=== PATIENT | female | born 1935 | race Caucasian/White ===

== ENCOUNTER 2016-12-17 14:06 | Inpatient (IN) | payer BC ==
[~2016-12-17] VITALS: Ht 157.5 cm; Wt 59.0 kg
[2016-12-17] MEDS ORDERED: MULTI VITAMIN1 EACH ORAL (14:19)
[2016-12-17] MEDS ORDERED: CALCIUM CITRAT1 EAC3 PO (14:19)
[2016-12-17] MEDS ORDERED: ASPIR 8181 MG ORAL (14:19)
[2016-12-17] MEDS ORDERED: DONEPEZIL HCL10 M2 ORAL (14:19)
[2016-12-17] MEDS ORDERED: ATORVASTATIN CA20 MG ORAL (14:19)
[2016-12-17 14:20] VITALS: BP 109/87
[2016-12-17] MEDS ORDERED: NAMENDA10 MG ORAL (14:23)
[2016-12-17] MEDS ORDERED: DESITIN57 G1 TP (14:23)
[2016-12-17] MEDS ORDERED: LEXAPRO10 MG ORAL (14:23)
[2016-12-17] MEDS ORDERED: LISINOPRIL-HCT1 EAC2 ORAL (14:23)
[2016-12-17] MEDS ORDERED: GLUCOSAMINE1000 M1 PO (14:23)
[2016-12-17] MEDS ORDERED: QUETIAPINE FUMA50 MG ORAL (14:23)
--- NOTE | 2016-12-17 14:25 | Emergency Room Report ---
History of Present Illness General Chief Complaint: Vomiting Source: Patient, Medical Record, EMS Present Illness HPI 81YOF BIBEMS from SNF with nausea/vomiting after eating lunch Per EMS, filled one emesis bag with "lunch contents." HPI limited by Hebrew-speaking and history of Alzheimers dementia Patient denies abd pain, dysuria, fever/chills, back pain, chest pain, SOB Allergies: Coded Allergies: AMLODIPINE (Verified Allergy, Unknown, 12/17/16) Patient History Limited by: language barrier, medical condition Past Medical History: dementia, other - HLD Past Surgical History: none, unable to obtain Pertinent Family History: unable to obtain Social History: Denies: smoking, alcohol use, drug use Now: No Immunizations: UTD Reviewed Nursing Documentation: PMH: Agreed, PSxH: Agreed Nursing Documentation-PMH Past Medical History: No History, Except For Hx Hypertension: Yes Hx Diabetes: Yes - PRE diabetes Hx Neurological Problems: Yes - Alzheimer's disease Review of Systems All Other Systems: negative except mentioned in HPI Physical Exam Vital Signs Date Time Temp Pulse Resp B/P (MAP) Pulse Ox O2 Delivery O2 Flow Rate FiO2 12/17/16 14:08 72 16 142/96 99 Room Air Sp02 EP Interpretation: reviewed, normal General Appearance: normal inspection, well appearing, no apparent distress, alert Head: normocephalic, atraumatic Eyes: bilateral eye PERRL, bilateral eye EOMI ENT: normal ENT inspection, hearing grossly normal, normal voice Neck: normal inspection, full range of motion, supple, no bony tend Respiratory: normal inspection, lungs clear, normal breath sounds, no respiratory distress, no retraction, no wheezing Cardiovascular #1: regular rate, rhythm, no edema Gastrointestinal: normal inspection, normal bowel sounds, non tender, soft, no guarding, no hernia Genitourinary: no CVA tenderness Musculoskeletal: normal inspection, back normal, normal range of motion, Concepcion' s Sign negative Neurologic: normal inspection, alert, oriented x3, responsive, 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 as tested, motor strength/tone normal, speech normal Psychiatric: normal inspection, judgement/insight normal, mood/affect normal Skin: normal inspection, normal color, no rash Lymphatic: normal inspection Procedures Critical Care Time Critical Care Time 35 minutes of CC time 81YOF with vomiting found to have NSTEMI, elevated troponin elevated CC time includes review of ECG, labs, dosing of heparin, ASA, d/w staff field engineer, review of EMR from [facility] Medical Decision Making Medicare Attestation I Becky Hernándze MD hereby attest that the medical record entry for date of service, 12/17/16ccurately reflects signatures/notations that I made in my capacity as MD when I treated/diagnosed the above listed Medicare beneficiary. I attest that this information is true, accurate and complete to the best of my knowledge. I understand that any falsification, omission, or concealment of material fact may subject me to administrative, civil, or criminal liability. This patient warrants hospital admission for extreme of age and has a condition that cannot be treated as outpatient. Diagnostic Impression: Primary Impression: Vomiting Qualified Codes: R11.10 - Vomiting, unspecified Additional Impression: Non-STEMI (non-ST elevated myocardial infarction) ER Course ECG NSR. Prolonged QTc Troponin elevated 0.1 Given ASA, Heparin gtt No leuks. H&h stable. Patient remains asymptomatic - no additional vomiting after medication. Patient is of Dr Mercer - tele admit 357pm Dr Watt consulted for Cardiology at 4pm as well. EKG Diagnostic Results Rate: normal Rhythm: NSR ST Segments: no acute changes Other Impression QTc 513 Rhythm Strip Diag. Results EP Interpretation: yes Rate: 77 Rhythm: NSR, no PVC's, no ectopy Chest X-Ray Diagnostic Results Chest X-Ray Diagnostic Results : Chest X-Ray Ordered: Yes # of Views/Limited/Complete: 1 View Indication: Other - vomiting EP Interpretation: Yes Interpretation: no consolidation, no effusion, no pneumothorax, no acute cardiopulmonary disease Impression: No acute disease Electronically Signed by: Dr Becky Hernández MD Last Vital Signs Date Time Temp Pulse Resp B/P (MAP) Pulse Ox O2 Delivery O2 Flow Rate FiO2 12/17/16 14:08 72 16 142/96 99 Room Air Status: improved Disposition: ADMITTED INPATIENT Condition: Critical BECKY HERNÁNDEZ M.D. Dec 17, 2016 14:25
[2016-12-17 14:59] LABS: EOSINOPHILS % (AUTO) 0.5 % (0.0-3.0); LYMPHOCYTES % (AUTO) 17.8 % (20.0-45.0); MEAN CORPUSCULAR HEMOGLOBIN 30.8 PG (27.0-31.0); MEAN CORPUSCULAR HGB CONC 33.4 G/DL (32.0-36.0); MEAN CORPUSCULAR VOLUME 92 FL (80-99); MEAN PLATELET VOLUME 5.9 FL (6.5-10.1); MONOCYTES % (AUTO) 5.3 % (1.0-10.0); NEUTROPHILS % (AUTO) 75.5 % (45.0-75.0); PLATELET COUNT 229 K/UL (150-450); RED BLOOD COUNT 4.54 M/UL (4.20-5.40); RED CELL DISTRIBUTION WIDTH 11.8 % (11.6-14.8); WHITE BLOOD COUNT 7.4 K/UL (4.8-10.8)
[2016-12-17 15:22] LABS: ALANINE AMINOTRANSFERASE 28 U/L (12-78); ALBUMIN/GLOBULIN RATIO 1.2 (1.0-2.7); ANION GAP 9 (5-15); ASPARTATE AMINO TRANSFERASE 22 U/L (15-37); CALCIUM 9.8 MG/DL (8.5-10.1); CARBON DIOXIDE 26 MMOL/L (21-32); CHLORIDE 106 MMOL/L (98-107); CREATININE 0.9 MG/DL (0.55-1.30); LIPASE 244 U/L (73-393); POTASSIUM 3.5 MMOL/L (3.5-5.1); SODIUM 141 MMOL/L (136-145); TOTAL PROTEIN 7.4 G/DL (6.4-8.2)
[2016-12-17 15:30] VITALS: BP 125/55
[2016-12-17] MEDS ORDERED: Heparin 5000 units/ml inj IV ONE (15:45)
[2016-12-17] MEDS: Heparin 25,000u/D5W 500ml 500 ML IV SCH ×2 (16:04→17:32)
[2016-12-17 16:30] VITALS: BP 121/90
[2016-12-17 17:30] VITALS: BP 105/68
--- NOTE | 2016-12-17 17:34 | History & Physical ---
History and Physical History & Physicial dict n/v, AMI dementia HTN HPLD cardiology to see BECKY RIVAS Dec 17, 2016 17:34
[2016-12-17 19:10] VITALS: BP 132/88
[2016-12-17] MEDS ORDERED: Lisinopril 10mg tab ORAL ONE (19:15)
[2016-12-17] MEDS ORDERED: Heparin 25,000 units/D5W 500ml (ACS/MI) IV SCH (19:45)
[2016-12-17] MEDS: Atorvastatin 20mg tab ORAL SCH (21:17)
--- NOTE | 2016-12-17 22:47 | History and Physical Report ---
DATE OF ADMISSION: 12/17/2016 CHIEF COMPLAINT: Nausea and vomiting. HISTORY OF PRESENT ILLNESS: This 81-year-old woman, who has advanced dementia and lives in an assisted living facility, vomited 3 times today and was brought to the emergency department by paramedics. She was evaluated and found to have evidence of elevated troponin consistent with an acute myocardial infarction. She has no recollection of the events and does not have chest pain. Her brother is with her and reports the above. PAST MEDICAL HISTORY: No history is available from the brother or her [facility] record, however, her medication list indicates that perhaps she has hypertension, hyperlipidemia, depression, and Alzheimer's dementia. ALLERGIES: Amlodipine. MEDICATIONS: Aspirin, Lipitor, calcium, donepezil, Lexapro, glucosamine, lisinopril and hydrochlorothiazide, Namenda, vitamins, Seroquel, and zinc. REVIEW OF SYSTEMS: Cannot really be obtained. Evidently, she lives in assisted living and appears well kempt. PHYSICAL EXAMINATION: GENERAL: The patient is alert and responsive, but has very poor memory. VITAL SIGNS: Show blood pressure 142/96, other vital signs are normal. She is well developed and well nourished. HEENT: Head is normocephalic. NECK: No jugular vein distention. CHEST: Clear. CARDIAC: Rhythm is regular. ABDOMEN: Soft and nontender. Liver and spleen are not enlarged. EXTREMITIES: No clubbing, cyanosis, or edema. LABORATORY AND DIAGNOSTIC DATA: The EKG appears normal. Laboratory studies show the troponin is elevated at 0.136. Blood sugar 142, BUN 24, otherwise electrolytes are normal. She has hemoglobin of 14. White count and platelets are normal. Urinalysis is pending. Coagulation shows normal PTT. IMPRESSION: 1. Nausea and vomiting with elevated troponin, probably due to acute myocardial infarction. 2. Alzheimer's dementia. 3. Hypertension. 4. Hyperlipidemia. PLAN: The patient will be admitted to telemetry bed. Cardiology has been called to see her. We will continue her current medications and aspirin. Invasive workup would not be appropriate given her advanced dementia. Kristopher Mercer M.D. DR: MS/V JOB#: [id number] CC: Kristopher Mercer M.D.; Fax#: [phone] Kelechi Watt M.D.
--- NOTE | 2016-12-17 23:17 | Consultation ---
DATE OF CONSULTATION: 12/17/2016 CARDIOLOGY CONSULTATION CONSULTING PHYSICIAN: Kelechi Watt M.D. ATTENDING PHYSICIAN: Kristopher Mercer M.D. REQUESTING PHYSICIAN: Kristopher Mercer M.D. REASON FOR CONSULTATION: Elevated troponin level. HISTORY OF PRESENT ILLNESS: This is an 81-year-old female. She resides at a intermediate facility. She was brought into the emergency room because of a large amount of emesis noted after lunch today. The patient apparently had no other symptoms including abdominal pain, fever, back pain, or chest pain. No shortness of breath. She does have history of dementia and full diagnostic workup was undertaken as a result. Concerns were raised over troponin level of 0.136 prompting this consultation. MEDICATIONS: Prior to admission, reviewed and reconciled. ALLERGIES: Include amlodipine. SOCIAL HISTORY: Negative for smoking, alcohol, or substance abuse. PAST MEDICAL HISTORY: Includes hypertension, hyperlipidemia, depression, dementia, osteoarthritis, and metabolic syndrome. REVIEW OF SYSTEMS: Not obtainable from the patient. Records are reviewed and pertinent data as outlined above. PHYSICAL EXAMINATION: VITAL SIGNS: Temperature 98.8, blood pressure 143/96, heart rate 72, respiratory rate 16. HEENT: Mild temporal wasting. Pale conjunctivae. Oropharynx clear. Mucous membranes dry. NECK: Supple. Jugular venous pressure normal. LUNGS: With clear breath sounds. CARDIAC: Regular rhythm and rate. Normal S1, S2 with fourth heart sound. ABDOMEN: Soft. No focal tenderness, guarding, or rebound. EXTREMITIES: Without edema. LABORATORY AND DIAGNOSTIC DATA: White count 7.4, hemoglobin 14.2. Sodium 141, potassium 3.5, bicarbonate 26, BUN 24, creatinine 0.9, and glucose 142. Albumin 4. Troponin 0.136. Chest x-ray with no acute process. EKG with sinus rhythm at 77 beats per minute, no acute ST or T-wave abnormalities, and QT interval is slightly prolonged. IMPRESSION: 1. Acute myocardial infarction. 2. Cerebrovascular disease with dementia. 3. Hypertensive heart disease with controlled blood pressure. 4. History of hyperlipidemia. 5. Vomiting x1. PLAN: 1. Hydration. 2. Antiplatelet therapy. 3. If no further increases in troponin levels, we will discontinue heparin drip. 4. Beta-blockade. 5. DVT prophylaxis once off IV heparin. 6. Check lipid panel. 7. Continue statin drug. 8. Consideration for further GI workup based on clinical parameters. Kelechi Watt M.D. DR: Abhijeet JOB#: [id number] CC:
[2016-12-18] VITALS: BP 109/50
[2016-12-18] MEDS ORDERED: Heparin 25,000 units/D5W 500ml (ACS/MI) IV SCH ×2 (01:15→11:30)
[2016-12-18] MEDS ORDERED: Heparin 5000 units/ml inj IV ONE (01:15)
[2016-12-18 04:00] VITALS: BP 107/67
[2016-12-18 08:00] VITALS: BP 114/59
[2016-12-18] MEDS: Memantine 10mg tab ORAL SCH ×2 (08:36→17:00)
[2016-12-18] MEDS: Donepezil 10mg tab ORAL SCH (08:36)
[2016-12-18] MEDS: Aspirin EC 81mg tab ORAL SCH (08:36)
[2016-12-18 10:01] LABS: BASOPHILS % (AUTO) 0.8 % (0.0-2.0); EOSINOPHILS % (AUTO) 1.3 % (0.0-3.0); LYMPHOCYTES % (AUTO) 26.6 % (20.0-45.0); MEAN CORPUSCULAR HEMOGLOBIN 30.6 PG (27.0-31.0); MEAN CORPUSCULAR HGB CONC 32.8 G/DL (32.0-36.0); MEAN CORPUSCULAR VOLUME 93 FL (80-99); MEAN PLATELET VOLUME 6.2 FL (6.5-10.1); MONOCYTES % (AUTO) 5.6 % (1.0-10.0); NEUTROPHILS % (AUTO) 65.7 % (45.0-75.0); PLATELET COUNT 214 K/UL (150-450); RED BLOOD COUNT 4.37 M/UL (4.20-5.40); RED CELL DISTRIBUTION WIDTH 12.2 % (11.6-14.8); WHITE BLOOD COUNT 7.1 K/UL (4.8-10.8)
[2016-12-18 10:52] LABS: HEMOGLOBIN A1C 6.8 % (4.3-6.0)
[2016-12-18 11:02] LABS: ALANINE AMINOTRANSFERASE 30 U/L (12-78); ALBUMIN/GLOBULIN RATIO 1.1 (1.0-2.7); ANION GAP 11 (5-15); ASPARTATE AMINO TRANSFERASE 32 U/L (15-37); CALCIUM 9.1 MG/DL (8.5-10.1); CARBON DIOXIDE 26 MMOL/L (21-32); CHLORIDE 106 MMOL/L (98-107); CHOLESTEROL 138 MG/DL (< 200); CHOLESTEROL/HDL RATIO 2.3 (3.3-4.4); CREATININE 1.1 MG/DL (0.55-1.30); POTASSIUM 3.3 MMOL/L (3.5-5.1); SODIUM 143 MMOL/L (136-145); THYROID STIMULATING HORMONE 1.433 uiU/mL (0.360-3.740); TOTAL PROTEIN 6.7 G/DL (6.4-8.2)
--- NOTE | 2016-12-18 11:14 | Pulmonology Progress Note ---
Assessment/Plan Assessment/Plan IMPRESSION: 1. Nausea and vomiting with elevated troponin, probably due to acute myocardial infarction. 2. Alzheimer's dementia. 3. Hypertension. 4. Hyperlipidemia. PLAN: The patient will be admitted to telemetry bed. Cardiology has been called to see her. We will continue her current medications and aspirin. Invasive workup would not be appropriate given her advanced dementia. Subjective Interval Events: no change Constitutional: Reports: no symptoms HEENT: Repors: no symptoms Respiratory: Reports: no symptoms Cardiovascular: Reports: no symptoms Gastrointestinal/Abdominal: Reports: no symptoms Allergies: Coded Allergies: AMLODIPINE (Verified Allergy, Unknown, 12/17/16) Objective Last 24 Hour Vital Signs Date Time Temp Pulse Resp B/P (MAP) Pulse Ox O2 Delivery O2 Flow Rate FiO2 12/18/16 08:00 67 12/18/16 08:00 97.9 58 20 114/59 96 Room Air 12/18/16 04:00 97.7 74 18 107/67 97 Room Air 12/18/16 04:00 55 12/18/16 00:00 61 12/18/16 00:00 97.5 60 18 109/50 96 Room Air 12/17/16 21:18 155/74 12/17/16 19:45 97.9 70 19 132/88 98 Room Air 12/17/16 19:10 97.9 70 19 132/88 98 Room Air 12/17/16 17:30 63 12 105/68 98 Room Air 12/17/16 16:30 98.2 63 11 121/90 98 Room Air 12/17/16 15:30 98.2 65 10 125/55 99 Room Air 12/17/16 14:20 98.2 76 13 109/87 99 Room Air 12/17/16 14:08 72 16 142/96 99 Room Air Intake and Output 12/18/16 12/19/16 19:00 07:00 Intake Total 18.848 ml Balance 18.848 ml IV Total 18.848 ml General Appearance: no acute distress HEENT: normocephalic Respiratory/Chest: chest wall non-tender Cardiovascular: normal peripheral pulses, normal rate Abdomen: normal bowel sounds, soft, non tender Laboratory Tests 12/17/16 14:37: White Blood Count 7.4, Red Blood Count 4.54, Hemoglobin 14.0, Hematocrit 41.9, Mean Corpuscular Volume 92, Mean Corpuscular Hemoglobin 30.8, Mean Corpuscular Hemoglobin Concent 33.4, Red Cell Distribution Width 11.8, Platelet Count 229, Mean Platelet Volume 5.9L, Neutrophils (%) (Auto) 75.5H, Lymphocytes (%) (Auto) 17.8L, Monocytes (%) (Auto) 5.3, Eosinophils (%) (Auto) 0.5, Basophils (%) (Auto ) 1.0, Activated Partial Thromboplast Time 24, Sodium Level 141, Potassium Level 3.5, Chloride Level 106, Carbon Dioxide Level 26, Anion Gap 9, Blood Urea Nitrogen 24H, Creatinine 0.9, Estimat Glomerular Filtration Rate , Glucose Level 142H, Calcium Level 9.8, Total Bilirubin 0.5, Aspartate Amino Transf (AST/ SGOT) 22, Alanine Aminotransferase (ALT/SGPT) 28, Alkaline Phosphatase 96, Troponin I 0.136H, Total Protein 7.4, Albumin 4.0, Globulin 3.4, Albumin/ Globulin Ratio 1.2, Lipase 244 12/17/16 23:20: Activated Partial Thromboplast Time 50H 12/18/16 02:00: Troponin I 2.948H 12/18/16 09:00: White Blood Count 7.1, Red Blood Count 4.37, Hemoglobin 13.4, Hematocrit 40.7, Mean Corpuscular Volume 93, Mean Corpuscular Hemoglobin 30.6, Mean Corpuscular Hemoglobin Concent 32.8, Red Cell Distribution Width 12.2, Platelet Count 214, Mean Platelet Volume 6.2L, Neutrophils (%) (Auto) 65.7, Lymphocytes (%) (Auto) 26.6, Monocytes (%) (Auto) 5.6, Eosinophils (%) (Auto) 1.3, Basophils (%) (Auto ) 0.8, Activated Partial Thromboplast Time 149H, Sodium Level 143, Potassium Level 3.3L, Chloride Level 106, Carbon Dioxide Level 26, Anion Gap 11, Blood Urea Nitrogen 22H, Creatinine 1.1, Estimat Glomerular Filtration Rate , Glucose Level 151H, Calcium Level 9.1, Total Bilirubin 0.6, Aspartate Amino Transf (AST/ SGOT) 32, Alanine Aminotransferase (ALT/SGPT) 30, Alkaline Phosphatase 88, Total Protein 6.7, Albumin 3.5, Globulin 3.2, Albumin/Globulin Ratio 1.1, Hemoglobin A1c 6.8H, Triglycerides Level 49, Cholesterol Level 138, LDL Cholesterol 78, HDL Cholesterol 59, Cholesterol/HDL Ratio 2.3L, Thyroid Stimulating Hormone (TSH) 1.433 Current Medications Medications (Trade) Dose Ordered Sig/Astrid Route PRN Reason Start Time Stop Time Status Last Admin Dose Admin Aspirin (Ecotrin) 81 mg DAILY ORAL 12/18/16 09:00 01/17/17 08:59 12/18/16 08:36 Atorvastatin Calcium (Lipitor) 20 mg BEDTIME ORAL 12/17/16 21:00 01/16/17 20:59 12/17/16 21:17 Donepezil HCl (Aricept) 10 mg DAILY ORAL 12/18/16 09:00 01/17/17 08:59 12/18/16 08:36 Escitalopram Oxalate (Lexapro) 10 mg DAILY ORAL 12/18/16 09:00 01/17/17 08:59 12/18/16 08:36 Heparin Sodium/ Dextrose 500 ml @ 15.314 mls/ hr Q24H IV 12/18/16 11:30 01/17/17 11:29 Memantine (Namenda) 10 mg TWICE A DAY ORAL 12/18/16 09:00 01/17/17 08:59 12/18/16 08:36 Multivitamins (Multivitamins) 1 tab DAILY ORAL 12/18/16 09:00 01/17/17 08:59 12/18/16 08:36 Quetiapine Fumarate (SEROquel) 25 mg BEDTIME ORAL 12/17/16 21:00 01/16/17 20:59 12/17/16 21:16 Willard Youngblood MD Dec 18, 2016 11:14
[2016-12-18 12:00] VITALS: BP 121/59
--- NOTE | 2016-12-18 12:55 | Diagnostic Imaging Report ---
Indication: Dyspnea Comparison: None A single view chest radiograph was obtained. Findings: Interstitial markings are prominent. Heart is enlarged. Bones are osteopenic. Impression: Mild interstitial edema or pneumonitis
[2016-12-18 15:29] LABS: APPEARANCE,URINE CLOUDY; KETONES,URINE NEGATIVE (NEGATIVE); LEUKOCYTE ESTERASE ,URINE 1+ (NEGATIVE); NITRITE,URINE NEGATIVE (NEGATIVE); PH,URINE 8 (4.5-8.0); PROTEIN,URINE NEGATIVE (NEGATIVE); UROBILINOGEN,URINE 1 MG/DL (0.0-1.0)
[2016-12-18 15:45] LABS: RBC,URINE 0-2 /HPF (0 - 2); SQUAMOUS EPITHELIAL CELL,UR OCCASIONAL /LPF (NONE/OCC); WBC,URINE 0-2 /HPF (0 - 2)
[2016-12-18 15:46] LABS: AMORPHOUS SEDIMENT,UR MANY /LPF; BACTERIA,URINE FEW /HPF
[2016-12-18 16:00] VITALS: BP_SYST 118; BP_SYST 119; BP_DIAS 41; BP_DIAS 73
--- NOTE | 2016-12-18 18:00 | Progress Note ---
DATE: 12/18/2016 CARDIOLOGY PROGRESS NOTE SUBJECTIVE: The patient has no chest pain. No shortness of breath. Her nausea has resolved. Her appetite is fair. She was able to eat minimal breakfast. OBJECTIVE: VITAL SIGNS: Blood pressure 109/50, pulse 60, respiratory rate 18, and afebrile last evening. Presently 114/59, pulse 58, and respiratory rate 20. HEENT: Conjunctivae are pink. Oropharynx clear. NECK: Supple. LUNGS: Clear. CARDIAC: Regular with normal S1 and S2 with no murmur. ABDOMEN: Soft. EXTREMITIES: No edema. LABORATORY AND DIAGNOSTIC DATA: EKG revealed sinus rhythm with possible septal infarction of indeterminate at age. Troponin levels have peaked at 2.948, presently 1.574. TSH 1.4. LDL cholesterol is 78. Potassium 3.3, BUN 23, and creatinine 1.1. IMPRESSION: 1. Acute myocardial infarction, non-ST elevation type. 2. Hypokalemia. 3. Favorable lipid panel on statin drug. 4. Type 2 diabetes mellitus with controlled blood glucose. 5. Hypertension, controlled. 6. Dementia. PLAN: 1. Continue anti-platelet therapy. 2. Discontinue IV heparin. 3. Low-dose beta-luis as tolerated by heart rate. 4. Potassium replacement. 5. Check magnesium. 6. If the patient remains clinically stable, we will follow a noninvasive conservative course of care in view of her performance status. Kelechi Watt M.D. DR: RENETTA JOB#: [id number] CC:
[2016-12-18 20:00] VITALS: BP_SYST 119; BP_SYST 130; BP_DIAS 41; BP_DIAS 53
[2016-12-18] MEDS: Atorvastatin 20mg tab ORAL SCH (21:29)
[2016-12-19] VITALS: BP 82/40
[2016-12-19 04:00] VITALS: BP 105/49
[2016-12-19 07:41] LABS: EOSINOPHILS % (AUTO) 1.7 % (0.0-3.0); LYMPHOCYTES % (AUTO) 31.7 % (20.0-45.0); MEAN CORPUSCULAR HEMOGLOBIN 31.3 PG (27.0-31.0); MEAN CORPUSCULAR HGB CONC 33.3 G/DL (32.0-36.0); MEAN CORPUSCULAR VOLUME 94 FL (80-99); MEAN PLATELET VOLUME 5.9 FL (6.5-10.1); MONOCYTES % (AUTO) 8.9 % (1.0-10.0); NEUTROPHILS % (AUTO) 56.7 % (45.0-75.0); PLATELET COUNT 203 K/UL (150-450); RED BLOOD COUNT 4.19 M/UL (4.20-5.40); RED CELL DISTRIBUTION WIDTH 12.5 % (11.6-14.8); WHITE BLOOD COUNT 5.2 K/UL (4.8-10.8)
[2016-12-19 08:00] VITALS: BP 120/53
[2016-12-19 08:02] LABS: ALANINE AMINOTRANSFERASE 27 U/L (12-78); ALBUMIN/GLOBULIN RATIO 1.1 (1.0-2.7); ANION GAP 5 (5-15); ASPARTATE AMINO TRANSFERASE 29 U/L (15-37); CARBON DIOXIDE 27 MMOL/L (21-32); CHLORIDE 106 MMOL/L (98-107); MAGNESIUM 2.2 MG/DL (1.8-2.4); POTASSIUM 3.9 MMOL/L (3.5-5.1); SODIUM 138 MMOL/L (136-145); TOTAL PROTEIN 6.2 G/DL (6.4-8.2)
[2016-12-19] MEDS: Memantine 10mg tab ORAL SCH ×2 (09:02→17:43)
[2016-12-19] MEDS: Donepezil 10mg tab ORAL SCH (09:02)
[2016-12-19] MEDS: Aspirin EC 81mg tab ORAL SCH (09:02)
[2016-12-19 12:00] VITALS: BP 129/58
[2016-12-19 16:00] VITALS: BP 103/63
--- NOTE | 2016-12-19 18:26 | Pulmonology Progress Note ---
Assessment/Plan Assessment/Plan 1. Nausea and vomiting with elevated troponin, probably due to acute myocardial infarction. 2. Alzheimer's dementia. 3. Hypertension. 4. Hyperlipidemia. PLAN: troponins trending down asa, statin bp control encourage po pt wound care check labs wednesday fu with cards recommendations, medical mgmt DM control Subjective ROS Limited/Unobtainable: Yes Allergies: Coded Allergies: AMLODIPINE (Verified Allergy, Unknown, 12/17/16) Subjective pt confused minimal po no reports of cp nv or bleeding positive uop Objective Last 24 Hour Vital Signs Date Time Temp Pulse Resp B/P (MAP) Pulse Ox O2 Delivery O2 Flow Rate FiO2 12/19/16 16:57 70 12/19/16 16:00 97.2 70 21 103/63 94 Room Air 12/19/16 12:00 97.6 55 21 129/58 96 Room Air 12/19/16 12:00 55 12/19/16 10:26 53 12/19/16 09:00 53 120/53 12/19/16 08:00 97.2 53 20 120/53 95 Room Air 12/19/16 04:00 97.1 53 20 105/49 96 Room Air 12/19/16 04:00 54 12/19/16 00:00 97.2 58 21 82/40 92 Room Air 12/19/16 00:00 59 12/18/16 21:29 63 130/53 12/18/16 20:00 67 12/18/16 20:00 97.3 72 21 119/41 95 Room Air Intake and Output 12/19/16 12/20/16 19:00 07:00 Intake Total 850 ml Balance 850 ml Other 850 ml # Voids 2 # Bowel Movements 1 General Appearance: cachetic HEENT: atraumatic, anicteric Respiratory/Chest: rhonchi Cardiovascular: normal rate, regular rhythm Abdomen: soft, non tender, no organomegaly Genitourinary: normal external genitalia Skin: ulcers - edema Neurologic/Psychiatric: disoriented Lymphatic: no neck adenopathy Laboratory Tests 12/19/16 06:50: White Blood Count 5.2, Red Blood Count 4.19L, Hemoglobin 13.1, Hematocrit 39.3, Mean Corpuscular Volume 94, Mean Corpuscular Hemoglobin 31.3H, Mean Corpuscular Hemoglobin Concent 33.3, Red Cell Distribution Width 12.5, Platelet Count 203, Mean Platelet Volume 5.9L, Neutrophils (%) (Auto) 56.7, Lymphocytes (%) (Auto) 31.7, Monocytes (%) (Auto) 8.9, Eosinophils (%) (Auto) 1.7, Basophils (%) (Auto ) 1.0, Sodium Level 138, Potassium Level 3.9, Chloride Level 106, Carbon Dioxide Level 27, Anion Gap 5, Blood Urea Nitrogen 24H, Creatinine 1.0, Estimat Glomerular Filtration Rate , Glucose Level 88, Calcium Level 9.0, Magnesium Level 2.2, Total Bilirubin 0.5, Aspartate Amino Transf (AST/SGOT) 29, Alanine Aminotransferase (ALT/SGPT) 27, Alkaline Phosphatase 79, Troponin I 0.569H, Pro- B-Type Natriuretic Peptide 2366H, Total Protein 6.2L, Albumin 3.2L, Globulin 3.0 , Albumin/Globulin Ratio 1.1 Current Medications Medications (Trade) Dose Ordered Sig/Astrid Route PRN Reason Start Time Stop Time Status Last Admin Dose Admin Aspirin (Ecotrin) 81 mg DAILY ORAL 12/18/16 09:00 01/17/17 08:59 12/19/16 09:02 Atorvastatin Calcium (Lipitor) 20 mg BEDTIME ORAL 12/17/16 21:00 01/16/17 20:59 12/18/16 21:29 Carvedilol (Coreg) 3.125 mg EVERY 12 HOURS ORAL 12/18/16 12:30 01/17/17 12:29 12/18/16 21:29 Donepezil HCl (Aricept) 10 mg DAILY ORAL 12/18/16 09:00 01/17/17 08:59 12/19/16 09:02 Escitalopram Oxalate (Lexapro) 10 mg DAILY ORAL 12/18/16 09:00 01/17/17 08:59 12/19/16 09:11 Memantine (Namenda) 10 mg TWICE A DAY ORAL 12/18/16 09:00 01/17/17 08:59 12/19/16 17:43 Multivitamins (Multivitamins) 1 tab DAILY ORAL 12/18/16 09:00 01/17/17 08:59 12/19/16 09:02 Quetiapine Fumarate (SEROquel) 25 mg BEDTIME ORAL 12/17/16 21:00 01/16/17 20:59 12/18/16 21:29 SATNAM CASPER DO Dec 19, 2016 18:26
[2016-12-19 20:00] VITALS: BP 119/72
[2016-12-19] MEDS: Atorvastatin 20mg tab ORAL SCH (21:40)
[2016-12-20] VITALS: BP 137/58
[2016-12-20 04:00] VITALS: BP 144/63
--- NOTE | 2016-12-20 06:42 | Pulmonology Progress Note ---
Assessment/Plan Assessment/Plan 1. Nausea and vomiting with elevated troponin, probably due to acute myocardial infarction. 2. Alzheimer's dementia. 3. Hypertension. 4. Hyperlipidemia. PLAN: troponins trending down asa, statin bp control encourage po pt wound care check labs wednesday fu with cards recommendations, medical mgmt DM control Subjective ROS Limited/Unobtainable: Yes Allergies: Coded Allergies: AMLODIPINE (Verified Allergy, Unknown, 12/17/16) Subjective pt remains confused no events over night no reports of cp nv or bleeding positive uop does not get oob on O2 Objective Last 24 Hour Vital Signs Date Time Temp Pulse Resp B/P (MAP) Pulse Ox O2 Delivery O2 Flow Rate FiO2 12/20/16 04:00 61 12/20/16 04:00 97.0 64 20 144/63 95 Room Air 12/20/16 00:00 97.0 60 20 137/58 95 Room Air 12/20/16 00:00 55 12/19/16 21:40 59 119/72 12/19/16 20:00 97.2 59 18 119/72 95 Room Air 12/19/16 20:00 60 12/19/16 16:57 70 12/19/16 16:00 97.2 70 21 103/63 94 Room Air 12/19/16 12:00 97.6 55 21 129/58 96 Room Air 12/19/16 12:00 55 12/19/16 10:26 53 12/19/16 09:00 53 120/53 12/19/16 08:00 97.2 53 20 120/53 95 Room Air General Appearance: cachetic HEENT: atraumatic, anicteric Respiratory/Chest: rhonchi Cardiovascular: normal rate, regular rhythm Abdomen: soft, non tender, non distended Extremities: other - edema Neurologic/Psychiatric: disoriented Laboratory Tests 12/19/16 06:50: White Blood Count 5.2, Red Blood Count 4.19L, Hemoglobin 13.1, Hematocrit 39.3, Mean Corpuscular Volume 94, Mean Corpuscular Hemoglobin 31.3H, Mean Corpuscular Hemoglobin Concent 33.3, Red Cell Distribution Width 12.5, Platelet Count 203, Mean Platelet Volume 5.9L, Neutrophils (%) (Auto) 56.7, Lymphocytes (%) (Auto) 31.7, Monocytes (%) (Auto) 8.9, Eosinophils (%) (Auto) 1.7, Basophils (%) (Auto ) 1.0, Sodium Level 138, Potassium Level 3.9, Chloride Level 106, Carbon Dioxide Level 27, Anion Gap 5, Blood Urea Nitrogen 24H, Creatinine 1.0, Estimat Glomerular Filtration Rate , Glucose Level 88, Calcium Level 9.0, Magnesium Level 2.2, Total Bilirubin 0.5, Aspartate Amino Transf (AST/SGOT) 29, Alanine Aminotransferase (ALT/SGPT) 27, Alkaline Phosphatase 79, Troponin I 0.569H, Pro- B-Type Natriuretic Peptide 2366H, Total Protein 6.2L, Albumin 3.2L, Globulin 3.0 , Albumin/Globulin Ratio 1.1 Current Medications Medications (Trade) Dose Ordered Sig/Astrid Route PRN Reason Start Time Stop Time Status Last Admin Dose Admin Aspirin (Ecotrin) 81 mg DAILY ORAL 12/18/16 09:00 01/17/17 08:59 12/19/16 09:02 Atorvastatin Calcium (Lipitor) 20 mg BEDTIME ORAL 12/17/16 21:00 01/16/17 20:59 12/19/16 21:40 Carvedilol (Coreg) 3.125 mg EVERY 12 HOURS ORAL 12/18/16 12:30 01/17/17 12:29 12/18/16 21:29 Donepezil HCl (Aricept) 10 mg DAILY ORAL 12/18/16 09:00 01/17/17 08:59 12/19/16 09:02 Escitalopram Oxalate (Lexapro) 10 mg DAILY ORAL 12/18/16 09:00 01/17/17 08:59 12/19/16 09:11 Memantine (Namenda) 10 mg TWICE A DAY ORAL 12/18/16 09:00 01/17/17 08:59 12/19/16 17:43 Multivitamins (Multivitamins) 1 tab DAILY ORAL 12/18/16 09:00 01/17/17 08:59 12/19/16 09:02 Quetiapine Fumarate (SEROquel) 25 mg BEDTIME ORAL 12/17/16 21:00 01/16/17 20:59 12/19/16 21:39 SATNAM CASPER DO Dec 20, 2016 06:42
[2016-12-20 08:00] VITALS: BP 172/76
[2016-12-20] MEDS: Donepezil 10mg tab ORAL SCH (08:49)
[2016-12-20] MEDS: Memantine 10mg tab ORAL SCH ×2 (08:51→17:23)
[2016-12-20] MEDS: Aspirin EC 81mg tab ORAL SCH (08:51)
[2016-12-20 12:00] VITALS: BP 139/65
[2016-12-20 16:19] VITALS: BP 129/66
[2016-12-20] MEDS ORDERED: 1/2 NS 1000ml IV ONE (17:13)
[2016-12-20 20:00] VITALS: BP 136/68
[2016-12-20] MEDS: Atorvastatin 20mg tab ORAL SCH (20:56)
[2016-12-21] VITALS (7 sets, daily range): BP systolic 113–135; BP diastolic 50–68
--- NOTE | 2016-12-21 04:00 | Progress Note ---
DATE: 12/20/2016 CARDIOLOGY PROGRESS NOTE SUBJECTIVE: The patient has no chest pain, no shortness of breath. No nausea or vomiting. She is tolerating oral intake, although appetite remains poor. Echocardiogram with normal ejection fraction. OBJECTIVE: VITAL SIGNS: Blood pressure is 144/63, pulse rate 64, respiratory rate 20, and afebrile. Monitored sinus and sinus bradycardia. LUNGS: Good breath sounds. HEART: Regular rhythm and rate. Normal S1 and S2. ABDOMEN: Soft. EXTREMITIES: No edema. LABORATORY DATA: Reviewed. IMPRESSION: 1. Acute myocardial infarction. 2. Acute diastolic congestive heart failure. 3. Type 2 diabetes mellitus. 4. Beta-luis associated sinus bradycardia of no hemodynamic significance. 5. Hypertensive heart disease with controlled blood pressure. PLAN: 1. Continue anti-lipid and anti-platelet therapy. 2. Continue low-dose beta-luis as tolerated. 3. Myocardial perfusion scan to assess ischemic burden and help guide long-term management, preferably medically. 4. Review chest x-ray. 5. Reassess clinical parameters for diuresis. Kelechi Watt M.D. DR: Mary JOB#: [id number] CC:
--- NOTE | 2016-12-21 04:00 | Progress Note ---
DATE: 12/19/2016 CARDIOLOGY PROGRESS NOTE Late entry for 12/19/2016 SUBJECTIVE: The patient has not had any recurring nausea or vomiting. She tolerated oral intake, although appetite is poor. She denies chest pain or shortness of breath. OBJECTIVE: VITAL SIGNS: Blood pressure is 103/63, pulse rate 70, respiratory rate 21, and afebrile. property assessment monitor reveals sinus and sinus bradycardia. Heart rate 53 to 70. NECK: Supple. LUNGS: Clear. CARDIAC: Regular. Normal S1 and S2 with a fourth heart sound. ABDOMEN: Soft. EXTREMITIES: No edema. DIAGNOSTIC DATA: Echocardiogram revealed normal ejection fraction. LABORATORY DATA: Pro-natriuretic peptide is 2366. BUN 24, creatinine 1, and potassium 3.9. Troponin remains elevated at 0.569. IMPRESSION: 1. Acute myocardial infarction. 2. Acute diastolic congestive heart failure. 3. Mild protein-calorie malnutrition. 4. Nausea and vomiting was likely an anginal equivalent. 5. Hypokalemia, corrected. 6. Type 2 diabetes mellitus with improving glucose control. 7. Hypertensive heart disease with controlled blood pressure. 8. Favorable lipid panel on current statin dosing. 9. Sinus with asymptomatic sinus bradycardia, on low-dose beta-luis. PLAN: 1. Myocardial perfusion scan to assess ischemic burden once troponin levels normalize, optimize anti-failure and antianginal regimen. 2. Diuresis based on clinical parameters. 3. Continue anti-platelet therapy. Kelechi Watt M.D. DR: Mary JOB#: [id number] CC:
[2016-12-21 07:39] LABS: BASOPHILS % (AUTO) 0.8 % (0.0-2.0); EOSINOPHILS % (AUTO) 1.9 % (0.0-3.0); LYMPHOCYTES % (AUTO) 28.7 % (20.0-45.0); MEAN CORPUSCULAR HEMOGLOBIN 32.5 PG (27.0-31.0); MEAN CORPUSCULAR HGB CONC 34.9 G/DL (32.0-36.0); MEAN CORPUSCULAR VOLUME 93 FL (80-99); MEAN PLATELET VOLUME 6.4 FL (6.5-10.1); MONOCYTES % (AUTO) 9.2 % (1.0-10.0); NEUTROPHILS % (AUTO) 59.4 % (45.0-75.0); PLATELET COUNT 197 K/UL (150-450); RED BLOOD COUNT 4.24 M/UL (4.20-5.40); WHITE BLOOD COUNT 6.3 K/UL (4.8-10.8)
[2016-12-21 07:50] LABS: ANION GAP 11 (5-15); CALCIUM 9.3 MG/DL (8.5-10.1); CARBON DIOXIDE 25 MMOL/L (21-32); CHLORIDE 107 MMOL/L (98-107); POTASSIUM 3.9 MMOL/L (3.5-5.1); SODIUM 143 MMOL/L (136-145)
[2016-12-21] MEDS: Aspirin EC 81mg tab ORAL SCH (08:56)
[2016-12-21] MEDS: Donepezil 10mg tab ORAL SCH (08:56)
[2016-12-21] MEDS: Memantine 10mg tab ORAL SCH ×2 (08:56→17:11)
--- NOTE | 2016-12-21 09:52 | Cardiology Report ---
APPROVED REPORT EXAM: Two-dimensional and M-mode echocardiogram with Doppler and color Doppler. INDICATION Acute UT M-Mode DIMENSIONS IVSd1.4 (0.7-1.1cm)Left Atrium (MM)3.2 (1.6-4.0cm) LVDd4.6 (3.5-5.6cm)Aortic Root3.0 (2.0-3.7cm) IVSs1.6 cm LVDs2.6 (2.5-4.0cm) PWs2.5 cm probe.. Normal left ventricular chamber size. Mid to distal anteroseptal wall hypokinesia, left ventricular ejection fraction is estimated to be 45%, ischemic cardiomyopathy cannot be excluded. Mild left ventricular hypertrophy. Anterior Echo-free space, may be due to pericardial fat or effusion. All other cardiac chamber sizes are within normal limits. Moderate focal aortic valve sclerosis with borderline cusp excursion. Echogenic material noted on aortic valve, likely calcification. Thickened mitral valve leaflets with normal excursion. Mitral annulus and aortic root calcification. Pulmonic valve not well visualized. Normal tricuspid valve structure. IVC at normal size with physiologic collapse. A color flow and spectral Doppler study was performed and revealed: Trace aortic regurgitation. No mitral regurgitation. Mitral diastolic velocities suggest reduced left ventricular relaxation c/w mild LV diastolic dysfunction (Grade I). Trace tricuspid regurgitation. Tricuspid systolic velocities suggests peak right ventricular systolic pressure of 10 mmHg. Moderate pulmonic regurgitation present.
--- NOTE | 2016-12-21 10:34 | Diagnostic Imaging Report ---
Indication: Shortness of breath Technique: One view of the chest Comparison: 12/17/2016 Findings: Lungs and pleural spaces are clear. Heart size is normal. Better inspiration currently Impression: No acute process
--- NOTE | 2016-12-21 11:24 | Pulmonology Progress Note ---
Assessment/Plan Assessment/Plan IMPRESSION: 1. Nausea and vomiting with elevated troponin, probably due to acute myocardial infarction. Now resolved 2. Alzheimer's dementia. 3. Hypertension. 4. Hyperlipidemia. PLAN: Seen by cardiology For stress test today Continue her current medications and aspirin. Invasive workup would not be appropriate given her advanced dementia. Subjective Interval Events: No new events; for stress test today Constitutional: Reports: no symptoms HEENT: Repors: no symptoms Respiratory: Reports: no symptoms Cardiovascular: Reports: no symptoms Gastrointestinal/Abdominal: Reports: nausea Genitourinary: Reports: no symptoms Allergies: Coded Allergies: AMLODIPINE (Verified Allergy, Unknown, 12/17/16) Objective Last 24 Hour Vital Signs Date Time Temp Pulse Resp B/P (MAP) Pulse Ox O2 Delivery O2 Flow Rate FiO2 12/21/16 08:56 66 122/68 12/21/16 08:39 97.2 66 18 122/68 95 Room Air 12/21/16 08:00 59 12/21/16 04:28 98.0 63 20 123/68 99 Room Air 12/21/16 04:00 58 12/21/16 00:02 97.8 58 20 113/58 94 Room Air 12/21/16 00:00 58 12/20/16 21:00 57 136/68 12/20/16 20:00 58 12/20/16 20:00 98.0 58 20 136/68 95 Room Air 12/20/16 16:19 97.3 60 18 129/66 96 Room Air 12/20/16 16:11 62 12/20/16 12:18 62 12/20/16 12:00 97.3 55 18 139/65 93 Room Air General Appearance: no acute distress HEENT: normocephalic Respiratory/Chest: chest wall non-tender, lungs clear Cardiovascular: normal peripheral pulses, normal rate Abdomen: normal bowel sounds Laboratory Tests 12/21/16 05:30: White Blood Count 6.3, Red Blood Count 4.24, Hemoglobin 13.8, Hematocrit 39.5, Mean Corpuscular Volume 93, Mean Corpuscular Hemoglobin 32.5H, Mean Corpuscular Hemoglobin Concent 34.9, Red Cell Distribution Width 12.0, Platelet Count 197, Mean Platelet Volume 6.4L, Neutrophils (%) (Auto) 59.4, Lymphocytes (%) (Auto) 28.7, Monocytes (%) (Auto) 9.2, Eosinophils (%) (Auto) 1.9, Basophils (%) (Auto ) 0.8, Sodium Level 143, Potassium Level 3.9, Chloride Level 107, Carbon Dioxide Level 25, Anion Gap 11, Blood Urea Nitrogen 29H, Creatinine 1.0, Estimat Glomerular Filtration Rate , Glucose Level 86, Calcium Level 9.3, Troponin I 0.113H, Pro-B-Type Natriuretic Peptide 1266H Current Medications Medications (Trade) Dose Ordered Sig/Astrid Route PRN Reason Start Time Stop Time Status Last Admin Dose Admin Aspirin (Ecotrin) 81 mg DAILY ORAL 12/18/16 09:00 01/17/17 08:59 12/21/16 08:56 Atorvastatin Calcium (Lipitor) 20 mg BEDTIME ORAL 12/17/16 21:00 01/16/17 20:59 12/20/16 20:56 Carvedilol (Coreg) 3.125 mg EVERY 12 HOURS ORAL 12/18/16 12:30 01/17/17 12:29 12/20/16 08:50 Donepezil HCl (Aricept) 10 mg DAILY ORAL 12/18/16 09:00 01/17/17 08:59 12/21/16 08:56 Escitalopram Oxalate (Lexapro) 10 mg DAILY ORAL 12/18/16 09:00 01/17/17 08:59 12/21/16 08:56 Memantine (Namenda) 10 mg TWICE A DAY ORAL 12/18/16 09:00 01/17/17 08:59 12/21/16 08:56 Multivitamins (Multivitamins) 1 tab DAILY ORAL 12/18/16 09:00 01/17/17 08:59 12/21/16 08:56 Quetiapine Fumarate (SEROquel) 25 mg BEDTIME ORAL 12/17/16 21:00 01/16/17 20:59 12/20/16 20:56 Willard Youngblood MD Dec 21, 2016 11:24
[2016-12-21] MEDS ORDERED: Adenosine Inj IVP ONE ×2 (13:00)
--- NOTE | 2016-12-21 16:44 | Diagnostic Imaging Report ---
Indications: Chest pain Technique: Single day single isotope protocol utilized. Initially, resting images obtained using IV administration 10.3 millicuries 99M technetium Myoview. Subsequently, patient underwent adenosine stress testing. See cardiology report for details. During adenosine infusion, IV administration 32.2 mCi 99 M technetium Myoview. SPECT and planar images obtained. SPECT images gated to 8 phases of the cardiac cycle were also obtained, and reformatted into cine images for evaluation of ejection fraction. Comparison: None Findings: Per cardiology report, patient experienced no symptoms. Per cardiology report, resting EKG demonstrates normal sinus rhythm. No ST-T wave changes were reported. Dizziness demonstrates small focus questionable decreased perfusion in the anteroseptal wall near the apex. No left ventricular dilatation. Calculated post stress ejection fraction 81%. No wall motion abnormality demonstrated Impression: Nonischemic clinical response to pharmacologic stress, per cardiology report Nonischemic electrocardiographic response to pharmacologic stress, per cardiology report Very questionable small reversible perfusion defect in the anteroseptal wall. Suspect artifactual, but small focus of ischemia not completely excludable Calculated post stress ejection fraction greater than 70%
[2016-12-21] MEDS: Heparin 5000 units/ml inj SUBQ SCH (21:50)
[2016-12-21] MEDS: Atorvastatin 20mg tab ORAL SCH (21:51)
[2016-12-22] VITALS: BP 92/63
[2016-12-22 04:00] VITALS: BP 104/73
--- NOTE | 2016-12-22 05:45 | Progress Note ---
DATE: 12/21/2016 CARDIOLOGY PROGRESS NOTE SUBJECTIVE: The patient has no new complaints. She denies chest pain. She had a myocardial perfusion scan. The results revealed normal ejection fraction at peak stress. There is a small area in the mid anteroseptal region that was abnormal with perfusion, but this was felt to be artifactual rather than true ischemia. At any rate, it is a very small area. OBJECTIVE: VITAL SIGNS: Blood pressure 131/64, pulse 70, respiratory rate 20, and afebrile. NECK: Supple. LUNGS: Clear. CARDIAC: Regular. Normal S1 and S2. ABDOMEN: Soft. EXTREMITIES: No edema. LABORATORY DATA: White count 6.3 and hemoglobin 13. Troponin down to 0.113. Pro-natriuretic peptide down to 1266. IMPRESSION: 1. Acute myocardial infarction. 2. Acute diastolic congestive heart failure. 3. Mild protein-calorie malnutrition. 4. Hypertensive heart disease. 5. Minimal reversible ischemia in the anteroseptal region at worse, more likely artifact. PLAN: 1. Medical management in this age group and clinical setting. 2. Continue current anti-anginal and anti-platelet regimen as well as anti-lipid drugs. 3. No additional cardiovascular workup planned. 4. Nitroglycerin as needed for chest pain at the shelter facility by sublingual route. Kelechi Watt M.D. DR: MARIA C JOB#: [id number] CC:
[2016-12-22 08:14] VITALS: BP 127/72
[2016-12-22] MEDS: Memantine 10mg tab ORAL SCH (08:57)
[2016-12-22] MEDS: Donepezil 10mg tab ORAL SCH (08:57)
[2016-12-22] MEDS: Aspirin EC 81mg tab ORAL SCH (08:57)
[2016-12-22] MEDS: Heparin 5000 units/ml inj SUBQ SCH (08:58)
[2016-12-22 11:55] VITALS: BP 126/57
--- NOTE | 2016-12-22 15:00 | Pulmonology Progress Note ---
Assessment/Plan Assessment/Plan IMPRESSION: 1. Nausea and vomiting with elevated troponin, probably due to acute myocardial infarction. Now resolved 2. Alzheimer's dementia. 3. Hypertension. 4. Hyperlipidemia. PLAN: Seen by cardiology Stress test negative Continue her current medications and aspirin. DC home/snf Subjective Interval Events: None; stress test negative Constitutional: Reports: no symptoms HEENT: Repors: no symptoms Respiratory: Reports: no symptoms Cardiovascular: Reports: no symptoms Allergies: Coded Allergies: AMLODIPINE (Verified Allergy, Unknown, 12/17/16) Objective Last 24 Hour Vital Signs Date Time Temp Pulse Resp B/P (MAP) Pulse Ox O2 Delivery O2 Flow Rate FiO2 12/22/16 12:00 57 12/22/16 11:55 97.2 60 18 126/57 100 Room Air 12/22/16 08:57 65 127/72 12/22/16 08:14 97.0 65 18 127/72 95 Room Air 12/22/16 08:00 82 12/22/16 04:00 96.8 58 20 104/73 94 Room Air 12/22/16 04:00 59 12/22/16 00:00 53 12/22/16 00:00 97.2 74 20 92/63 94 Room Air 12/21/16 21:50 70 131/64 12/21/16 20:16 97.7 70 20 131/64 94 Room Air 12/21/16 20:00 76 12/21/16 20:00 97.7 70 20 131/64 94 Room Air 12/21/16 16:08 97.3 64 18 135/50 95 Room Air 12/21/16 16:00 73 Intake and Output 12/22/16 12/23/16 19:00 07:00 Intake Total 240 ml Balance 240 ml Intake Oral 240 ml # Voids 2 General Appearance: no acute distress HEENT: normocephalic Respiratory/Chest: chest wall non-tender, lungs clear Cardiovascular: normal peripheral pulses, normal rate Current Medications Medications (Trade) Dose Ordered Sig/Astrid Route PRN Reason Start Time Stop Time Status Last Admin Dose Admin Aspirin (Ecotrin) 81 mg DAILY ORAL 12/18/16 09:00 01/17/17 08:59 12/22/16 08:57 Atorvastatin Calcium (Lipitor) 20 mg BEDTIME ORAL 12/17/16 21:00 01/16/17 20:59 12/21/16 21:51 Carvedilol (Coreg) 3.125 mg EVERY 12 HOURS ORAL 12/18/16 12:30 01/17/17 12:29 12/22/16 08:57 Donepezil HCl (Aricept) 10 mg DAILY ORAL 12/18/16 09:00 01/17/17 08:59 12/22/16 08:57 Escitalopram Oxalate (Lexapro) 10 mg DAILY ORAL 12/18/16 09:00 01/17/17 08:59 12/22/16 08:57 Heparin Sodium (Porcine) (Heparin 5000 units/ml) 5,000 units EVERY 12 HOURS SUBQ 12/21/16 21:00 01/20/17 20:59 12/22/16 08:58 Memantine (Namenda) 10 mg TWICE A DAY ORAL 12/18/16 09:00 01/17/17 08:59 12/22/16 08:57 Multivitamins (Multivitamins) 1 tab DAILY ORAL 12/18/16 09:00 01/17/17 08:59 12/22/16 08:57 Quetiapine Fumarate (SEROquel) 25 mg BEDTIME ORAL 12/17/16 21:00 01/16/17 20:59 12/21/16 21:47 Willard Youngblood MD Dec 22, 2016 15:00
[2016-12-22 15:42] VITALS: BP 121/70
--- NOTE | 2016-12-23 01:00 | Progress Note ---
DATE: 12/22/2016 CARDIOLOGY PROGRESS NOTE SUBJECTIVE: The patient has no chest pain, no shortness of breath. She is tolerating her diet. No nausea or vomiting have been noted. The patient had an adenosine myocardial perfusion scan yesterday which revealed minimal abnormality in the anteroseptal region that was felt to be more likely artifact than actual ischemia, ejection fraction was normal. OBJECTIVE: VITAL SIGNS: Blood pressure 126/57, pulse 60, respiratory rate 18, afebrile. NECK: Supple. LUNGS: Clear. CARDIAC: Regular. Normal S1 and S2 with a fourth heart sound. ABDOMEN: Soft. No edema. Monitor sinus and sinus bradycardia. IMPRESSION: 1. Acute myocardial infarction. Minimal ischemic burden and poor performance status. 2. Hypertension with hypertensive heart disease. 3. Hyperlipidemia. PLAN: 1. Stable for followup on current cardiovascular medication. 2. Discharge plan to [facility] facility. 3. Continue aspirin and statin drug as well. 4. No indication for any further diagnostic studies presently. Kelechi Watt M.D. DR: Divine JOB#: [id number] CC:
--- NOTE | 2016-12-24 13:57 | Discharge Summary ---
Discharge Summary Hospital Course Date of Admission Dec 17, 2016 at 15:42 Date of Discharge Dec 22, 2016 at 17:26 Admitting Diagnosis N-STEMI HPI Jodi Watson is a 81 year old female who was admitted on Dec 17, 2016 at 15:42 for Non Myocardial Infarction Procedures [id number] Discharge Discharge Disposition Patient was discharged back to assisted living Discharge Diagnoses: Lorelei Ordoñez NP Dec 24, 2016 13:57
--- NOTE | 2016-12-24 22:46 | Discharge Summary 2 SIG ---
DATE OF ADMISSION: 12/17/2016 DATE OF DISCHARGE: 12/22/2016 ATTENDING PHYSICIAN: Kristopher Mercer M.D. PHYSICIAN PRACTICE CONSULTANT: Kelechi Watt M.D. BRIEF HOSPITAL COURSE: The patient is an 81-year-old female, who has advanced dementia and lives in an assisted living facility, vomited three times and was brought to emergency department by paramedics. On evaluation, she was noted to have evidence of elevated troponin consistent with acute myocardial infarction. EKG was in normal sinus rhythm with prolonged QTc. Chest x-ray showed no acute cardiopulmonary disease. She was given aspirin and was started on heparin drip. She was admitted to telemetry for evaluation of acute myocardial infarction. She underwent cardiac evaluation with Dr. Watt. Lipid panel was checked. She was given Lipitor 20 mg at bedtime. Echocardiogram done showed ejection fraction 45%. BNP was elevated to 2366. Intravenous heparin was eventually discontinued. Troponin down trended. She underwent myocardial perfusion scan. Results revealed normal ejection fraction at peak stress. There is a small area in the mid anteroseptal region that was abnormal with perfusion, but this was felt to be artifactual rather than true ischemia. The patient was cleared for discharge to continue medical management. Continue with anti-platelet, anti-anginal, and anti-lipid medications. No additional cardiovascular workup planned. She was eventually discharged to assisted living. FINAL DIAGNOSES: 1. Acute myocardial infarction. 2. Hypertension with hypertensive heart disease. 3. Hyperlipidemia. 4. Alzheimer's dementia. 5. Gastroesophageal reflux disease. 6. Acute diastolic congestive heart failure. 7. Mild protein-calorie malnutrition. 8. Hypokalemia, corrected. 9. Type 2 diabetes mellitus with improving glucose control. 10. Sinus with asymptomatic sinus bradycardia. DISPOSITION: The patient was discharged back home to assisted living. FOLLOWUP: The patient was advised to follow up with PMD in a week. Willard Youngblood M.D. I have been assigned to dictate discharge summary on this account and I was not involved in the patient's management. Lorelei Ordoñez N.P. DR: ANGEL JOB#: [id number] CC:
--- NOTE | 2016-12-29 08:35 | Cardiology Report ---
APPROVED REPORT EKG Measurement Heart [id number] Sinus bradycardia Septal infarct, age undetermined T wave abnormality, consider anterior ischemia Abnormal ECG
--- NOTE | 2016-12-29 08:44 | Cardiology Report ---
APPROVED REPORT EKG Measurement Heart [id number] Normal sinus rhythm Prolonged QT Abnormal ECG
== END 2016-12-22 17:26 | disposition home or self-care (01) | DRG 280 ==
LOC: EDBD 14:06 → EMR 14:52 → EDBEDREQSVC 15:38 → 2E 15:42 → EDBEDREQ 15:53 → 2E 12-19 11:19
DX: I21.9 Acute myocardial infarction, unspecified (principal); I50.31 Acute diastolic (congestive) heart failure; G30.9 Alzheimer's disease, unspecified; R00.1 Bradycardia, unspecified; F02.80 Dementia in other diseases classified elsewhere, unspecified severity, without behavioral disturbance, psychotic disturbance, mood disturbance, and anxiety; E44.1 Mild protein-calorie malnutrition; E11.9 Type 2 diabetes mellitus without complications; E78.5 Hyperlipidemia, unspecified; E87.6 Hypokalemia; I11.0 Hypertensive heart disease with heart failure; K21.9 Gastro-esophageal reflux disease without esophagitis; R11.2 Nausea with vomiting, unspecified; Z88.8 Allergy status to other drugs, medicaments and biological substances
CPT/HCPCS: 36415; 71010; 78452; 80048; 80053; 80061; 81001; 83036; 83690; 83735; 83880; 84443; 84484; 85025; 85730; 93005; 93017; 93306; J2405; J8499